=== PATIENT | male | born 1945 | race Caucasian/White ===

== ENCOUNTER 2021-05-20 06:20 | Outpatient (CLI) | payer OTHER ==
[~2021-05-20] VITALS: Ht 170.2 cm; Wt 81.8 kg
[2021-05-20] MEDS ORDERED: OMEP20CA18 PO (16:18)
[2021-05-20] MEDS ORDERED: OMEG-160 PO (16:18)
[2021-05-20] MEDS ORDERED: ATOR10TA66 PO (16:18)
[2021-05-20] MEDS ORDERED: GABA300C PO (16:18)
[2021-05-20] MEDS ORDERED: ASPI-808 PO (16:18)
[2021-05-20] MEDS ORDERED: METO50TA15 PO (16:18)
[2021-05-20] MEDS ORDERED: SERT-414 PO (16:18)
[2021-05-20] MEDS ORDERED: LISI20TA26 PO (16:18)
[2021-05-20] MEDS ORDERED: TRM50T PO (16:18)
== END 2021-05-20 16:28 | disposition home or self-care (01) ==
LOC: PREOP 06:20
PROVIDERS: ATTEND Otolaryngology Otolaryngology/Facial Plastic Surgery
DX: Z01.818 Encounter for other preprocedural examination (principal)

== ENCOUNTER 2021-05-24 06:25 | Day surgery (SDC) | payer OTHER ==
[2021-05-24] VITALS (10 sets, daily range): BP systolic 125–157; BP diastolic 65–79
[~2021-05-24] VITALS: Ht 170.2 cm; Wt 81.8 kg
[~2021-05-24 06:25] MED LIST: ASPI-808 PO; ATOR10TA66 PO; GABA300C PO; LISI20TA26 PO; METO50TA15 PO; OMEG-160 PO; OMEP20CA18 PO; SERT-414 PO; TRM50T PO
[2021-05-24] MEDS ORDERED: LACTATED RINGERS 1,000 ML IV PRN (06:45)
--- NOTE | 2021-05-24 06:59 | Progress Note-Pre Operative ---
Pre-Operative Progress Note H&P Reviewed The H&P was reviewed, patient examined and no changes noted. Date Seen by Provider: May 24, 2021 Time Seen by Provider: 06:30 Date H&P Reviewed: May 24, 2021 Time H&P Reviewed: 06:30 Pre-Operative Diagnosis: Left Soft Palate/Tonsil Mass KD GREEN MD May 24, 2021 06:59
[2021-05-24] MEDS ORDERED: LIDOCAINE PF 2% 5 ML (XYLOCAINE) VIAL ONE (07:41)
[2021-05-24] MEDS ORDERED: proPOfol 200 MG/20 ML (DIPRIVAN) VIAL IV ONE (07:41)
[2021-05-24] MEDS ORDERED: MIDAZOLAM 2 MG/2 ML (VERSED) VIAL ONE (07:41)
[2021-05-24] MEDS ORDERED: fentaNYL INJ 100 MCG/2 ML AMP ONE (07:41)
[2021-05-24] MEDS ORDERED: ONDANSETRON 4 MG/2 ML (SDV) Z0FRAN ONE (07:41)
[2021-05-24] MEDS ORDERED: LIDOCAINE/EPI 1%-1:100,000 (XYLOCAINE) 20ML ONE (07:43)
[2021-05-24] MEDS ORDERED: SEVOFLURANE (ULTANE) 15 ML INHAL SOLN ONE ×2 (08:11→08:46)
--- NOTE | 2021-05-24 08:23 | Progress Note-Post Operative ---
Post-Operative Progess Note Surgeon (s)/[employer] (s) Surgeon KD GREEN MD [employer] n/a Pre-Operative Diagnosis Left Soft Palate/Tonsil Mass Post-Operative Diagnosis same Post-Op Procedure Note Date of Procedure: May 24, 2021 Name of Procedure Performed: Direct Laryngoscopy with Biopsy of Left Soft Palate/Left Superior Pole of Tonsil Description & Findings Description and Findings: n/a Anesthesia Type get Estimated Blood Loss minimal Packing none. Specimen(s) collected/removed biopsy to patholgy for frozen KD GREEN MD May 24, 2021 08:23
[2021-05-24] MEDS ORDERED: PROMETHAZINE INJ 25 MG/ML (PHENERGAN) AMP IV PRN (08:30)
[2021-05-24] MEDS ORDERED: LIDOCAINE 2% VISCOUS 15 ML UDC PO PRN (08:30)
[2021-05-24] MEDS ORDERED: GLYCOPYRROLATE 0.2 MG/ML (ROBINUL) 2 ML VIAL ONE (08:42)
[2021-05-24] MEDS ORDERED: NEOSTIGMINE 3 MG/3 ML VIAL ONE (08:42)
[2021-05-24] MEDS ORDERED: ROCURONIUM 10 MG/ML 5 ML SYRINGE IV ONE (08:46)
[2021-05-24] MEDS ORDERED: fentaNYL INJ 100 MCG/2 ML AMP IVP ONE (09:00)
[2021-05-24] MEDS ORDERED: ONDANSETRON 4 MG/2 ML (SDV) Z0FRAN IVP PRN (09:00)
[2021-05-24] MEDS ORDERED: MEPERIDINE (DEMEROL) INJ 50 MG/ML IVP ONE (09:00)
[2021-05-24] MEDS ORDERED: VISCOUS XYLOCAINE PO (09:49)
[2021-05-24] MEDS ORDERED: TRAM50TA3 PO (09:49)
--- NOTE | 2021-05-24 11:11 | Anesthesia-General Post-Op ---
General Patient Condition Mental Status/LOC: Same as Preop Cardiovascular: Satisfactory Nausea/Vomiting: Absent Respiratory: Satisfactory Pain: Controlled Complications: Absent Post Op Complications Complications None Follow Up Care/Instructions Patient Instructions None needed. Anesthesia/Patient Condition Patient Condition Patient is doing well, no complaints, stable vital signs, no apparent adverse anesthesia problems. No complications reported per nursing. YANI MARCUM CRNA May 24, 2021 11:11
== END 2021-05-24 10:25 ==
LOC: SDC 06:25
PROVIDERS: ATTEND Otolaryngology Otolaryngology/Facial Plastic Surgery
DX: C09.9 Malignant neoplasm of tonsil, unspecified (principal); I10 Essential (primary) hypertension; K21.9 Gastro-esophageal reflux disease without esophagitis; F17.210 Nicotine dependence, cigarettes, uncomplicated; F43.10 Post-traumatic stress disorder, unspecified; Z79.82 Long term (current) use of aspirin; Z79.899 Other long term (current) drug therapy; Z80.9 Family history of malignant neoplasm, unspecified; Z82.49 Family history of ischemic heart disease and other diseases of the circulatory system
CPT/HCPCS: 87081